=== PATIENT | female | born 1990 | race Caucasian/White ===

== ENCOUNTER 2016-12-09 14:10 | Emergency (ER) | payer OTHER ==
[2016-12-09 16:39] VITALS: PULSE 69; RESP 18
--- NOTE | 2016-12-09 16:51 | ED ---
General Adult HPI - General Chief complaint: Abdominal Pain Stated complaint: lower back pain/flank pain Source: patient, family, RN notes reviewed Mode of arrival: ambulatory Limitations: no limitations - History of Present Illness Initial comments: Chief complaint history of present illness a 26-year-old female here with her mother. The patient reports she's had on-again off-again discomfort to her lumbar spine area and occasionally radiates into the buttocks and sometimes down both legs. Discomfort increases with bending forward. Occasionally she has some sweats. No nausea no vomiting. She can't remember any particular effort or injury that may have happened over the past 6 weeks. - Related Data Home Medications Medication Instructions Recorded Confirmed Levonorgestrel-Ethin Estradiol 1 tab PO HS 12/09/16 12/09/16 [Lutera-28 Tablet] Previous Rx's Medication Instructions Recorded Diazepam [Valium] 5 mg PO BID #4 tab 12/09/16 Ibuprofen [Motrin] 600 mg PO Q6HR PRN #16 tab 12/09/16 predniSONE 20 mg PO DAILY #3 tab 12/09/16 Allergies Allergy/AdvReac Type Severity Reaction Status Date / Time No Known Allergies Allergy Verified 12/09/16 14:16 Review of Systems ROS Statement: Those systems with pertinent positive or pertinent negative responses have been documented in the HPI. Review of systems no visual acuity changes no headache no stiff neck no chest pain or shortness of breath. Patient complains of low back pain and mild discomfort to the lower abdomen both left and right side. No low back pain constant. The other discomforts coming go. No significant change in frequency urgency or dysuria. Though the patient has had urinary tract infections without symptoms. Patient denies any neuro deficits. No foot drop. All systems are reviewed. Past medical problems urinary tract infections. Surgeries appendectomy. Family history cancers include breast and thyroid. Patient denies any ALLERGIES nonsmoker nondrinker. ROS Other: All systems not noted in ROS Statement are negative. Past Medical History Past Medical History: No Reported History Additional Past Medical History / Comment(s): Obstetric history: This is her first . She has had care with me since 8 week gestation. A neg , abs neg, Rub nonimmune, RPR NR, Hep B neg, HIV NR, toxo neg. She recieved rhogam on 10-21-13. Had a normal anatomy US. normal 1hr GTT History of Any Multi-Drug Resistant Organisms: MRSA Date of last positivie culture/infection: 07/24/2011 MDRO Source:: BUTTOCKS Past Surgical History: Appendectomy Past Anesthesia/Blood Transfusion Reactions: No Reported Reaction Past Psychological History: No Psychological Hx Reported Smoking Status: Never smoker Past Alcohol Use History: None Reported Past Drug Use History: None Reported General Exam - General Exam Comments Initial Comments: General: The patient is awake and alert, in no distress, and does not appear acutely ill. Complaining of lumbar discomfort. Vital signs temperature 98.6 pulse 71 respiratory rate 20 pulse ox 99% room air blood pressure 134/92 Eye: Pupils are equal, round and reactive to light, extra-ocular movements are intact ; there is normal conjunctiva bilaterally. No signs of icterus. Ears, nose, mouth and throat: There are moist mucous membranes and no oral lesions. Neck: The neck is supple, there is no tenderness, no anterior cervical lymphadenopathy , thyroid not enlarged. Cardiovascular: There is a regular rate and rhythm. No murmur, rub or gallop is appreciated. Respiratory: Lungs are clear to auscultation, respirations are non-labored, breath sounds are equal. No wheezes, stridor, rales, or rhonchi. Gastrointestinal: Soft, non-distended, non-tender abdomen without masses or organomegaly noted. There is no rebound or guarding present. No CVA tenderness. Bowel sounds are unremarkable. Back: Pointed discomfort to the left and right paralumbar region. No pain with deep palpation of the lumbar spine. Discomfort slightly increases with bending down to moss picker her child or bending fully over. Occasional discomfort into the legs. No foot drop. No neuro deficits. Musculoskeletal: Normal ROM, no tenderness, There is no pedal edema. There is no calf tenderness or swelling. Sensation intact. Pulses equal bilaterally 2+. Neurological: CN II-XII intact, There are no obvious motor or sensory deficits. Coordination appears grossly intact. Speech is normal. Skin: Skin is warm and dry and no rashes or lesions are noted. Limitations: no limitations Course Vital Signs 12/09/16 12/09/16 14:14 16:30 Temperature 98.6 F Pulse Rate 71 69 Respiratory 20 18 Rate Blood Pressure 134/92 116/74 O2 Sat by Pulse 99 98 Oximetry Medical Decision Making - Medical Decision Making [place] decision-making. The patient's urine is clean no signs of infection. Urine test was negative as well. X-ray of the lumbar spine was done and reviewed by radiologist. Final impression is slight narrowing of L4-L5 disc. Otherwise negative exam. As read by Dr. Correa The plan at this size for the patient be placed on a muscle relaxant of Valium 5 mg twice a day for 2 days. Also advised to use ibuprofen 600 mg with food every 6 hours. Advised to follow-up with her family physician for a MRI may be necessary if symptoms persist. - Lab Data Lab Results 12/09/16 12/09/16 Range/Units 16:57 16:57 Urine Color Yellow Urine Appearance Clear (Clear) Urine pH 5.0 (5.0-8.0) Ur Specific [place] 1.007 (1.001-1.035) Urine Protein Negative (Negative) Urine Glucose (UA) Negative (Negative) Urine Ketones Negative (Negative) Urine Blood Negative (Negative) Urine Nitrite Negative (Negative) Urine Bilirubin Negative (Negative) Urine Urobilinogen <2.0 (<2.0) mg/dL Ur Leukocyte Esterase Negative (Negative) Urine HCG, Qual Not Detected (Not Detectd) Disposition Clinical Impression: Lumbar disc narrowing Disposition: HOME SELF-CARE Condition: Fair Instructions: Lower Back Exercises (ED), Degenerative Disc Disease (ED), Lumbar Radiculopathy (ED) Additional Instructions: Ice alternating with heat and gentle stretching. Use medications as directed. Follow up with your family physician as an MRI may be necessary for further evaluation medications aren't effective. Prescriptions: Diazepam [Valium] 5 mg PO BID #4 tab Ibuprofen [Motrin] 600 mg PO Q6HR PRN #16 tab PRN Reason: Pain predniSONE 20 mg PO DAILY #3 tab Referrals: Wei Sorto MD [Primary Care Provider] - 1-2 days Time of Disposition: 17:50
[2016-12-09 17:05] LABS: Appearance,Urine Clear (Clear); Bilirubin,Urine Negative (Negative); Glucose,Urine (UA) Negative (Negative); Ketones,Urine Negative (Negative); Leukocyte Esterase,Urine Negative (Negative); Nitrite,Urine Negative (Negative); Protein,Urine Negative (Negative); Specific Gravity,Urine 1.007 (1.001-1.035); UA Billing (MACRO vs. MICRO) CHEM; Urobilinogen,Urine <2.0 mg/dL (<2.0)
--- NOTE | 2016-12-09 17:31 | XR ---
EXAMINATION TYPE: XR lumbosacral spine min 4V DATE OF EXAM: 12/09/2016 COMPARISON: NONE HISTORY: Back pain TECHNIQUE: 5 views FINDINGS: 5 views of the lumbar spine were obtained and show normal alignment of the vertebra. There is slight narrowing at L4-5 disc space. The other disc spaces are normal. There is no compression fra cture. Sacroiliac joints are normal. Posterior elements are intact. IMPRESSION: Slight narrowing of L4-5 disc. Otherwise negative exam.
[2016-12-09 18:03] VITALS: BP 104/58; TEMP 97.9
== END 2016-12-09 18:03 | disposition home or self-care (01) ==
LOC: EC 14:10
DX: M48.06 Spinal stenosis, lumbar region (principal); Z79.3 Long term (current) use of hormonal contraceptives
CPT/HCPCS: 72110; 81003; 81025; 87077; 87086; 87186; 99284

== ENCOUNTER → 2017-06-12 | Outpatient (CLI) | payer OTHER ==
--- NOTE | 2017-06-12 16:12 | US ---
EXAMINATION TYPE: US OB <= 14 wk fetus DATE OF EXAM: 06/12/2017 COMPARISON: NONE CLINICAL HISTORY: Z36 Confirm dates. Early OB with unknown dates EXAM PERFORMED: OBTA EXAM MEASUREMENTS: GESTATIONAL AGE / DATING Physician Established: (11 weeks/3 days) EDC: 12/29/2017 Dates by LMP: unknown Dates by First Scan: [employer]ING Dates by Current Scan for: (11 weeks/3 days) EDC: 12/29/2017 MATERNAL ANATOMY Uterus: 11.3 x 8.1 x 7.2 Right Ovary: 3.3 x 2.3 x 2.4cm Left Ovary: not seen due to bowel gas and enlarging UT Post CDS / Adnexa: wnl Presence of free fluid: no Presence of corpus luteal cyst: yes, right = 2.0cm Presence of subchorionic bleed: no GESTATION / SURVEY CRL: 4.6cm (11 weeks/3 days) MSD: wnl Yolk Sac (normal less than 6mm): not seen Heart Rate: 178 bpm Rhythm: Normal IUP: Viable IUP Date of LMP: unknown Beta HcG (if available): not available Single live intrauterine gestation is seen as gestational sac and pole are identified. Yolk sac is not clearly seen. No free fluid is seen in pelvic cul-de-sac. Right ovary is seen. Left ovary is not clearly identified. Within right ovary there is oval 2.0 cm le thaddeus felt to reflect corpus luteal cyst. No suspicious adnexal mass is present. IMPRESSION: Single live intrauterine gestation is confirmed, mean crown-rump length is 4.6 cm corresponding to a 11 week 3 day old fetus.
== END | disposition home or self-care (01) ==
LOC: RADUSWWP 15:41
PROVIDERS: ATTEND Obstetrics & Gynecology
DX: Z36.9 Encounter for antenatal screening, unspecified (principal); Z3A.11 11 weeks gestation of pregnancy
CPT/HCPCS: 76801

== ENCOUNTER 2017-12-05 12:54 | Outpatient (CLI) | payer OTHER ==
[2017-12-05 14:13] VITALS: BP 102/62; PULSE 84; RESP 15; TEMP 97.8
--- NOTE | 2018-01-02 07:40 | P.MSEPDOC ---
Presenting Problems - Arrival Data Date of Arrival on Unit: 12/05/17 Time of Arrival on Unit: 12:59 Mode of Transport: Ambulatory Medical History - Information : 2 Para: 1 Term: 1 : 0 Abortions: Spontaneous or Elective: 0 Number of Living Children: 1 - Gestational Age Gestational Age by CÉSAR (wks/days): 36 Weeks and 4 Days Vital Signs - Temperature Temperature: 97.8 F Temperature Source: Oral - Pulse Right Brachial Pulse Rate: 84 Pulse Assessment Method: Automatic Cuff - Respirations Respiratory Rate: 15 Oxygen Delivery Method: Room Air O2 Sat by Pulse Oximetry: 99 - Blood Pressure Right Arm Sitting Blood Pressure: 102/62 Blood Pressure Mean: 75 Blood Pressure Source: Automatic Cuff Medical Screen Scoring (Post) - Cervical Exam Dilation: 1-3 cm = 1 Effacement: More than 50% = 2 Membranes: Intact - Uterine Contractions Frequency: > 5 minutes apart = 1 Duration: N/A Intensity: N/A - Maternal Vital Signs Maternal Temperature: N/A Maternal Blood Pressure: N/A Signs of Preeclampsia: N/A Maternal Respirations: N/A - Pain Assessment Pain Location and Character: Abdomen Pain Scale Used: Numeric (1 - 10) Pain Intensity: 4 Pain Description: *Acute Pain Frequency: Intermittent Pain Duration Units: Hours Pain Behavior: Vocalization Pain Aggravating Factors: Contractions Non-Pharmacological Interventions: Relaxation Technique - Maternal Trauma Maternal Trauma: N/A - Assessment Heart Rate: 135 Heart Rate - NICHD Category: Category I (Normal) = 0 NST: Reactive Position: N/A Station: N/A - Total Score Total Score (Post): 4 - Post Treatment Level of Risk Post Treatment Level of Risk: Low (0-5) Physician Notification (Post) - Physician Notified Physician Notified Date: 12/05/17 Physician Notified Time: 14:00 Spoke With: Dr Alves New Order Received: Yes - Notification Comment Comment: pt here for contx. pt made no cervical change. dc home and f/u in office tomorrow per t.oDebbi Alves Disposition - Disposition OB Disposition: Triage, Discharge to home, Written follow up instructions reviewed Discharge Date: 12/05/17 Discharge Time: 14:10 I agree with the RN Medical Screening Exam: Yes Risk & Benefit of care provided described in d/c instruction: Yes Diagnosis: FALSE LABOR BEFORE 37 COMPLETED WEEKS OF GEST, THIRD TRI
== END 2017-12-05 14:10 | disposition home or self-care (01) ==
LOC: FBPOP 12:54
PROVIDERS: ATTEND Obstetrics & Gynecology
DX: O47.03 False labor before 37 completed weeks of gestation, third trimester (principal); Z3A.36 36 weeks gestation of pregnancy
CPT/HCPCS: 59025; G0463; 99213

== ENCOUNTER 2018-01-03 01:10 | Inpatient (IN) | payer OTHER ==
[2018-01-03] MEDS ORDERED: TERBUTALINE 1 MG/ML VIAL SQ PRN (01:29)
[2018-01-03] MEDS ORDERED: OXYTOCIN 10 UNIT/ML 1 ML VIAL IM PRN (01:29)
[2018-01-03] MEDS ORDERED: LIDOCAINE 1% (PF) 10 MG/ML (30 ML SDV) SQ PRN (01:29)
[2018-01-03] MEDS ORDERED: METHYLERGONOVINE 0.2 MG/ML 1 ML AMP IM PRN (01:29)
[2018-01-03] MEDS ORDERED: CARBOPROST TROMETHAMINE 250 MCG/ML 1 ML AMP IM PRN (01:29)
[2018-01-03] MEDS ORDERED: OXYTOCIN 20 UNITS/1000 ML NS 1,000 ML IV SCH (01:30)
[2018-01-03 01:48] VITALS: BMI 28.9
[2018-01-03 01:59] LABS: Basophils % (A) 0 %; Eosinophils # (A) 0.1 k/uL (0-0.7); Eosinophils % (A) 1 %; HCT 42.1 % (34.0-46.0); HGB 14.3 gm/dL (11.4-16.0); Lymphocytes % (A) 11 %; MCH 32.6 pg (25.0-35.0); MCV 95.9 fL (80.0-100.0); Monocytes # (A) 0.9 k/uL (0-1.0); Monocytes % (A) 5 %; Neutrophils # (A) 15.7 k/uL (1.3-7.7); Neutrophils % (A) 83 %; Platelet Count 142 k/uL (150-450); RBC 4.39 m/uL (3.80-5.40); RDW 13.6 % (11.5-15.5)
[2018-01-03] MEDS: LACTATED RINGERS 1,000 ML IV SCH ×3 (02:12→17:23)
[2018-01-03] MEDS ORDERED: diphenhydrAMINE 50 MG/ML 1 ML VIAL IVP PRN ×2 (02:30)
[2018-01-03] MEDS ORDERED: SIMETHICONE 80 MG CHEWABLE PO PRN (02:30)
[2018-01-03] MEDS ORDERED: HYDROcodone/APAP 5-325MG 1 EACH TAB PO PRN (02:30)
[2018-01-03] MEDS ORDERED: WITCH HAZEL 1 EACH MED..PAD TOPICAL PRN (02:30)
[2018-01-03] MEDS ORDERED: diphenhydrAMINE 25 MG CAP PO PRN (02:30)
[2018-01-03] MEDS ORDERED: IBUPROFEN 600 MG TAB PO PRN (02:30)
[2018-01-03] MEDS ORDERED: HYDROCORTISONE 2.5% RECTAL CREAM 30 GM TUBE RECTAL PRN (02:30)
[2018-01-03] MEDS ORDERED: LANOLIN CREAM 5 GM TUBE TOPICAL PRN (02:30)
[2018-01-03] MEDS ORDERED: diphenhydrAMINE 50 MG CAP PO PRN (02:30)
[2018-01-03] MEDS ORDERED: BENZOCAINE/MENTHOL SPRAY 1 GM/SPRAY AEROSOL TOPICAL PRN (02:30)
[2018-01-03] MEDS ORDERED: ACETAMINOPHEN TAB 325 MG TAB PO PRN (02:30)
[2018-01-03] MEDS ORDERED: ZOLPIDEM 5 MG TAB PO PRN (02:30)
--- NOTE | 2018-01-03 02:33 | P.HPOB ---
History of Present Illness H&P Date: 01/03/18 Chief Complaint: Intrauterine at term: Active labor Patient is a 27-year-old at 40 weeks 5 days gestation arrives in active labor krishna every 2-3 minutes. At presentation she was dilated to 9 cm with intact membranes. She denies any problems with the and she is feeling well at this time. She relates no other medical problems either. Artificial rupture membranes was performed with patient complete clear fluid is noted. Pertinent labs could O- blood type, Rh antibody was negative, she did receive [place] gamma approximately 28 weeks. Rubella was immune, hepatitis B surface antigen/RPR/GBS were all negative. heart tones in the 130s to 140s and are reactive Past Medical History Past Medical History: No Reported History Additional Past Medical History / Comment(s): Obstetric history: This is her first . She has had care with me since 8 week gestation. A neg , abs neg, Rub nonimmune, RPR NR, Hep B neg, HIV NR, toxo neg. She recieved rhogam on 10-21-13. Had a normal anatomy US. normal 1hr GTT History of Any Multi-Drug Resistant Organisms: MRSA Date of last positivie culture/infection: 07/24/2011 MDRO Source:: BUTTOCKS Past Surgical History: Appendectomy Past Anesthesia/Blood Transfusion Reactions: No Reported Reaction Past Psychological History: No Psychological Hx Reported Smoking Status: Never smoker Past Alcohol Use History: None Reported Past Drug Use History: None Reported - Past Family History Mother Family Medical History: Hypertension Medications and Allergies Home Medications Medication Instructions Recorded Confirmed Type Pnv No.95/Ferrous Fum/Folic AC 1 12/05/17 History [ Multivitamin Tablet] Allergies Allergy/AdvReac Type Severity Reaction Status Date / Time No Known Allergies Allergy Verified 01/03/18 01:29 Exam Osteopathic Statement: *. No significant issues noted on an osteopathic structural exam other than those noted in the History and Physical/Consult. Vital Signs Temp Pulse Resp BP 01/03/18 01:10 96.5 F L 95 16 115/70 Intake and Output 01/02/18 01/02/18 01/03/18 14:59 22:59 06:59 Other: Weight 78.925 kg - OBG Physical Exam Breast: both: normal (no masses) Abdomen: bowel sounds normal, no diffuse tenderness, no bruit present, no guarding noted, no hepatomegaly, no splenomegaly, no mass Vulva: both: normal Vagina: normal moisture, no discharge Cervix: no lesion, no discharge Uterus: normal size, normal contour Adnexa: both: normal Anus/Rectum: normal perianal skin, no rectal mass, no hemorrhoids, heme negative Results Result Diagrams: 01/03/18 01:45 Abnormal Lab Results - Last 24 Hours (Table) 01/03/18 Range/Units 01:45 WBC 19.0 H (3.8-10.6) k/uL Plt Count 142 L (150-450) k/uL Neutrophils # 15.7 H (1.3-7.7) k/uL
--- NOTE | 2018-01-03 02:35 | P.PROBDLV ---
Vaginal Delivery Note - . Vaginal Delivery Note: Patient precipitously came to complete and pushing with spontaneous vaginal delivery of a viable female over a second-degree midline laceration. Following delivery of the head a nuchal cord 2 was noted but patient pushed through and without difficulty baby was fully delivered. Nuchal cord was then reduced and mouth nares were bulb suctioned. Patient was unable to herself from pushing any further, but with the looseness of the cord there is no issues with delivery and the baby. Once baby was delivered nursery personnel was present to assume care. Ascent was then delivered intact, it had what appears to be a velamentous insertion and while it came out in total it was having some friability to it and will be sent to pathology. Once placenta was delivered Pitocin was added to the IV scores are pending but weight was 7 lbs. 12 oz. A second degree midline laceration was noted and repaired in usual fashion with 3-0 Vicryl following 1% Xylocaine for analgesia. Both mother and baby are currently stable following delivery.
[2018-01-03] MEDS: SENNOSIDES-DOCUSATE SODIUM 1 EACH TAB PO SCH ×2 (07:55→22:06)
[2018-01-04] MEDS: LACTATED RINGERS 1,000 ML IV SCH (01:29)
--- NOTE | 2018-01-04 08:00 | P.DS ---
Providers Date of admission: 01/03/18 01:25 Expected date of discharge: 01/04/18 Attending physician: Loli Alves Primary care physician: Stated None - Discharge Diagnosis(es) (1) Normal vaginal delivery Current Visit: Yes Status: Acute Hospital Course: Patient presented in active labor. She underwent normal vaginal delivery. Her post course was uncomplicated. She'll be discharged home day #1 in stable condition to follow-up with me in 6 weeks. Plan - Discharge Summary Discharge Rx Participant: Yes New Discharge Prescriptions: New Ibuprofen [Motrin] 600 mg PO Q6HR PRN #30 tab PRN Reason: Mild Pain Or Fever >= 100.5 No Action Pnv No.95/Ferrous Fum/Folic AC [ Multivitamin Tablet] 1 Discharge Medication List Pnv No.95/Ferrous Fum/Folic AC [ Multivitamin Tablet] 1 12/05/17 [ History] Ibuprofen [Motrin] 600 mg PO Q6HR PRN #30 tab 01/04/18 [Rx] Follow up Appointment(s)/Referral(s): Loli Alves DO [Doctor of Osteopathic Medicine] - 6 Weeks Discharge Disposition: HOME SELF-CARE
[2018-01-04 08:39] VITALS: BP 104/70; PULSE 86; RESP 16; TEMP 97.4
[2018-01-04] MEDS: SENNOSIDES-DOCUSATE SODIUM 1 EACH TAB PO SCH (08:58)
[2018-01-04 09:30] LABS: Basophils % (A) 0 %; Eosinophils # (A) 0.1 k/uL (0-0.7); Eosinophils % (A) 1 %; HCT 38.9 % (34.0-46.0); Lymphocytes # (A) 2.1 k/uL (1.0-4.8); Lymphocytes % (A) 23 %; MCH 32.5 pg (25.0-35.0); MCHC 33.5 g/dL (31.0-37.0); MCV 97.1 fL (80.0-100.0); Mean Platelet Volume 8.1; Monocytes # (A) 0.3 k/uL (0-1.0); Monocytes % (A) 3 %; Neutrophils # (A) 6.4 k/uL (1.3-7.7); Neutrophils % (A) 71 %; Platelet Count 172 k/uL (150-450); RBC 4.01 m/uL (3.80-5.40)
== END 2018-01-04 16:00 | disposition home or self-care (01) | DRG 775 ==
LOC: FBPOP 01:10 → 4FBP 01:25
PROVIDERS: ADMIT Obstetrics & Gynecology; ATTEND Obstetrics & Gynecology
PROC: 10E0XZZ Delivery of Products of Conception, External Approach (ICD-10-PCS; principal; 2018-01-03)
PROC: 0KQM0ZZ Repair Perineum Muscle, Open Approach (ICD-10-PCS; 2018-01-03)
DX: O69.81X0 Labor and delivery complicated by cord around neck, without compression, not applicable or unspecified (principal); Z37.0 Single live birth; O26.893 Other specified pregnancy related conditions, third trimester; O70.1 Second degree perineal laceration during delivery; Z67.91 Unspecified blood type, Rh negative; Z3A.40 40 weeks gestation of pregnancy; Z86.14 Personal history of Methicillin resistant Staphylococcus aureus infection; Z90.49 Acquired absence of other specified parts of digestive tract; Z82.49 Family history of ischemic heart disease and other diseases of the circulatory system
CPT/HCPCS: 59025; 85025; 88307; 99213

== ENCOUNTER 2018-03-25 02:34 | Emergency (ER) | payer OTHER ==
--- NOTE | 2018-03-25 05:45 | ED ---
Fall HPI - General Chief Complaint: Fall Stated Complaint: Fall/Chin injury Time Seen by Provider: 03/25/18 05:24 Source: patient Mode of arrival: ambulatory - History of Present Illness Initial Comments: This patient is a 28-year-old woman who presents to be a value for chin laceration sustained in a fall area secured less than hour prior to arrival. I patient denies other injuries. There was no loss consciousness. She states she tripped while she was walking. She is denying head or neck pain. No other injuries. 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 Witnessed: yes, by family Place Fall Occurred: street Loss of Consciousness: none Prolonged Down Time?: no Symptoms Prior to Fall: none Location: face - Related Data Home Medications Medication Instructions Recorded Confirmed Pnv No.95/Ferrous Fum/Folic AC 1 12/05/17 [ Multivitamin Tablet] Previous Rx's Medication Instructions Recorded Ibuprofen [Motrin] 600 mg PO Q6HR PRN #30 tab 01/04/18 Allergies Allergy/AdvReac Type Severity Reaction Status Date / Time No Known Allergies Allergy Verified 03/25/18 02:40 Review of Systems ROS Statement: Those systems with pertinent positive or pertinent negative responses have been documented in the HPI. ROS Other: All systems not noted in ROS Statement are negative. Respiratory: Denies: cough, dyspnea Cardiovascular: Denies: chest pain, syncope Skin: Reports: as per HPI, other (Laceration) Hematological/Lymphatic: Denies: easy bleeding Past Medical History Past Medical History: No Reported History Additional Past Medical History / Comment(s): Obstetric history: This is her first . She has had care with mi since 8 week gestation. A neg , abs neg, Rub nonimmune, RPR NR, Hep B neg, HIV NR, toxo neg. She recieved rhogam on 10-21-13. Had a normal anatomy US. normal 1hr GTT History of Any Multi-Drug Resistant Organisms: MRSA Date of last positivie culture/infection: 07/24/2011 MDRO Source:: BUTTOCKS Past Surgical History: Appendectomy Past Anesthesia/Blood Transfusion Reactions: No Reported Reaction Past Psychological History: No Psychological Hx Reported Smoking Status: Never smoker Past Alcohol Use History: Rare Past Drug Use History: None Reported - Past Family History Mother Family Medical History: Hypertension General Exam General appearance: alert, in no apparent distress Head exam: Present: atraumatic, normocephalic Eye exam: Present: normal appearance, PERRL, EOMI. Absent: scleral icterus, conjunctival injection, nystagmus ENT exam: Present: normal oropharynx, mucous membranes moist Neck exam: Present: full ROM. Absent: tenderness Skin exam: Present: warm, dry, other (Skin laceration, stellate, approximately 2 cm in length.) Course Vital Signs 03/25/18 02:35 Temperature 98.1 F Pulse Rate 101 H Respiratory 18 Rate Blood Pressure 107/69 O2 Sat by Pulse 99 Oximetry Procedures - Laceration Laceration #1 Consent Obtained: verbal consent Indication: laceration Site: face Description: stellate Depth: simple, single layer Anesthetic Used: lidocaine 1% Anesthesia Technique: local infiltration Type of Sutures: nylon Size of Sutures: 6-0 Number of Sutures: 3 Technique: simple, interrupted Patient Tolerated Procedure: well, no complications Disposition Clinical Impression: Chin laceration, Fall Disposition: HOME SELF-CARE Condition: Good Instructions: Laceration (DC) Is patient prescribed a controlled substance at d/c from ED?: No Referrals: Wei Sorto MD [Primary Care Provider] - 1-2 days
[2018-03-25 05:58] VITALS: BP 113/70; PULSE 78; RESP 16; TEMP 97.7
== END 2018-03-25 05:58 | disposition home or self-care (01) ==
LOC: EC 02:34
DX: S01.81XA Laceration without foreign body of other part of head, initial encounter (principal); Z86.14 Personal history of Methicillin resistant Staphylococcus aureus infection; W01.0XXA Fall on same level from slipping, tripping and stumbling without subsequent striking against object, initial encounter; Y93.01 Activity, walking, marching and hiking; Y92.410 Unspecified street and highway as the place of occurrence of the external cause
CPT/HCPCS: 12011; 99283

== ENCOUNTER 2018-05-18 17:43 | Emergency (ER) | payer OTHER ==
[2018-05-18 17:57] VITALS: TEMP 98.4
[2018-05-18] MEDS ORDERED: CYCLOBENZAPRINE 5 MG TAB PO STA (18:11)
[2018-05-18] MEDS ORDERED: HYDROcodone/APAP 5-325MG 1 EACH TAB PO STA (18:12)
--- NOTE | 2018-05-18 18:24 | ED ---
Back Pain HPI - General Chief Complaint: Back Pain/Injury Stated Complaint: back pain Time Seen by Provider: 05/18/18 18:00 Source: patient, RN notes reviewed Limitations: no limitations - History of Present Illness Initial Comments: 28-year-old female presents emergency Department chief complaint of low back pain. Patient states that pain started Monday when she was stepping outside of her door while carrying the car seat. She states that she continuously locked up and felt pain. Patient states she's been doing conservative treatment at home with topicals, ibuprofen, heat and ice. Patient states that she gets some relief but states pain is unbearable at this time. Denies any bowel, bladder incontinence or retention. Patient denies any lower extremity paresthesias or saddle anesthesias. She does admit that she has some pain and rates her left leg. Patient denies any abdominal pain including nausea, vomiting, diarrhea constipation no fever or chills. Patient states that she's had some back trouble in the past but never to this extent. - Related Data Home Medications Medication Instructions Recorded Confirmed Ibuprofen [Motrin] 800 mg PO Q6H 05/18/18 05/18/18 Previous Rx's Medication Instructions Recorded Ciprofloxacin HCl [Cipro] 500 mg PO Q12HR #20 tablet 05/18/18 Cyclobenzaprine [Flexeril] 10 mg PO TID PRN #15 tab 05/18/18 Allergies Allergy/AdvReac Type Severity Reaction Status Date / Time No Known Allergies Allergy Verified 05/18/18 18:13 Review of Systems ROS Statement: Those systems with pertinent positive or pertinent negative responses have been documented in the HPI. ROS Other: All systems not noted in ROS Statement are negative. Past Medical History Past Medical History: No Reported History Additional Past Medical History / Comment(s): Obstetric history: This is her first . She has had care with [facility] since 8 week gestation. A neg , abs neg, Rub nonimmune, RPR NR, Hep B neg, HIV NR, toxo neg. She recieved rhogam on 10-21-13. Had a normal anatomy US. normal 1hr GTT History of Any Multi-Drug Resistant Organisms: MRSA Date of last positivie culture/infection: 07/24/2011 MDRO Source:: BUTTOCKS Past Surgical History: Appendectomy Past Anesthesia/Blood Transfusion Reactions: No Reported Reaction Past Psychological History: No Psychological Hx Reported Smoking Status: Never smoker Past Alcohol Use History: Rare Past Drug Use History: None Reported - Past Family History Mother Family Medical History: Hypertension General Exam Limitations: no limitations General appearance: alert, in no apparent distress Head exam: Present: atraumatic, normocephalic, normal inspection Cardiovascular Exam: Present: normal rhythm, tachycardia, normal heart sounds. Absent: systolic murmur, diastolic murmur, rubs, gallop, clicks GI/Abdominal exam: Present: soft, normal bowel sounds. Absent: distended, tenderness, guarding, rebound, rigid Extremities exam: Present: normal inspection, full ROM, normal capillary refill , other (Lower extremity strength equal bilaterally, neurovascular intact). Absent: tenderness, pedal edema, joint swelling, calf tenderness Back exam: Present: full ROM (Moderate discomfort), tenderness, CVA tenderness ( L), paraspinal tenderness (Lumbar). Absent: vertebral tenderness Neurological exam: Present: alert, oriented X3, CN II-XII intact, reflexes normal. Absent: motor sensory deficit Skin exam: Present: warm, dry, intact, normal color. Absent: rash Course Vital Signs 05/18/18 17:54 Temperature 98.4 F Pulse Rate 125 H Respiratory 16 Rate Blood Pressure 84/61 O2 Sat by Pulse 100 Oximetry Medical Decision Making - Medical Decision Making 28-year-old female presented for low back pain, flank pain. Patient has muscle skeletal lumbar strain. Patient does feel improved after medications emergency department. Patient does have evidence of urinary tract infection. She is afebrile. Patient will be treated with antibiotics for early pyelonephritis. Return parameters were discussed. Patient is comfortable with discharge. - Lab Data Lab Results 05/18/18 05/18/18 Range/Units 19:00 19:00 Urine Color Yellow Urine Appearance Cloudy H (Clear) Urine pH 5.5 (5.0-8.0) Ur Specific Adams 1.013 (1.001-1.035) Urine Protein 1+ H (Negative) Urine Glucose (UA) Negative (Negative) Urine Ketones Negative (Negative) Urine Blood Moderate H (Negative) Urine Nitrite Negative (Negative) Urine Bilirubin Negative (Negative) Urine Urobilinogen <2.0 (<2.0) mg/dL Ur Leukocyte Esterase Large H (Negative) Urine RBC 3 (0-5) /hpf Urine WBC 51 H (0-5) /hpf Ur Squamous Epith Cells 2 (0-4) /hpf Urine Bacteria Rare H (None) /hpf Cellular Casts 15 (0) /lpf Hyaline Casts 3 H (0-2) /lpf Granular Casts 8 (0) /lpf Urine Mucus Occasional H (None) /hpf Urine HCG, Qual Not Detected (Not Detectd) Disposition Clinical Impression: Strain of lumbar region, UTI (urinary tract infection) Disposition: HOME SELF-CARE Condition: Stable Instructions (If sedation given, give patient instructions): Acute Low Back Pain (ED) Additional Instructions: Please return to the Emergency Department if symptoms worsen or any other concerns. Prescriptions: Ciprofloxacin HCl [Cipro] 500 mg PO Q12HR #20 tablet Cyclobenzaprine [Flexeril] 10 mg PO TID PRN #15 tab PRN Reason: Muscle Spasm Is patient prescribed a controlled substance at d/c from ED?: No Referrals: Wei Sorto MD [Primary Care Provider] - 1-2 days Time of Disposition: 19:44
[2018-05-18 19:39] LABS: Appearance,Urine Cloudy (Clear); Bacteria,Urine Rare /hpf; Bilirubin,Urine Negative (Negative); Blood,Urine Moderate (Negative); Cellular Casts,Urine 15 /lpf (0); Color,Urine Yellow; Glucose,Urine (UA) Negative (Negative); Granular Casts,Urine 8 /lpf (0); Hyaline Casts,Urine 3 /lpf (0-2); Ketones,Urine Negative (Negative); Leukocyte Esterase,Urine Large (Negative); Mucus,Urine Occasional /hpf; Nitrite,Urine Negative (Negative); PH, Urine 5.5 (5.0-8.0); Protein,Urine 1+ (Negative); RBC,Urine 3 /hpf (0-5); Specific Gravity,Urine 1.013 (1.001-1.035); Squamous Epithelial Cell,Urine 2 /hpf (0-4); Urobilinogen,Urine <2.0 mg/dL (<2.0); WBC,Urine 51 /hpf (0-5)
[2018-05-18] MEDS ORDERED: ACET/COD 300 MG/30 MG STARTER PACK 6 TAB BTL PO STA (19:43)
[2018-05-18 20:01] VITALS: BP 98/61; PULSE 102; RESP 18
== END 2018-05-18 20:00 | disposition home or self-care (01) ==
LOC: EC 17:43
DX: S39.012A Strain of muscle, fascia and tendon of lower back, initial encounter (principal); N39.0 Urinary tract infection, site not specified; N12 Tubulo-interstitial nephritis, not specified as acute or chronic; R00.0 Tachycardia, unspecified; Z86.14 Personal history of Methicillin resistant Staphylococcus aureus infection; Z90.49 Acquired absence of other specified parts of digestive tract
CPT/HCPCS: 81001; 81025; 99283

== ENCOUNTER 2019-08-29 15:46 | Inpatient (IN) | payer OTHER ==
[2019-08-29] MEDS ORDERED: CARBOPROST TROMETHAMINE 250 MCG/ML 1 ML AMP IM PRN (16:07)
[2019-08-29] MEDS ORDERED: OXYTOCIN 10 UNIT/ML 1 ML VIAL IM PRN (16:07)
[2019-08-29] MEDS ORDERED: LIDOCAINE 0.5% (PF) 5 MG/ML (50 ML SDV) SQ PRN (16:07)
[2019-08-29] MEDS ORDERED: METHYLERGONOVINE 0.2 MG/ML 1 ML AMP IM PRN (16:07)
[2019-08-29] MEDS ORDERED: TERBUTALINE 1 MG/ML VIAL SQ PRN (16:07)
[2019-08-29] MEDS: LACTATED RINGERS 1,000 ML IV SCH (16:24)
[2019-08-29 16:44] LABS: Basophils % (A) 0 %; Eosinophils % (A) 0 %; HCT 41.6 % (34.0-46.0); HGB 14.4 gm/dL (11.4-16.0); Lymphocytes # (A) 1.8 k/uL (1.0-4.8); Lymphocytes % (A) 11 %; MCH 32.9 pg (25.0-35.0); MCHC 34.6 g/dL (31.0-37.0); MCV 95.2 fL (80.0-100.0); Monocytes # (A) 0.4 k/uL (0-1.0); Monocytes % (A) 3 %; Neutrophils # (A) 14.7 k/uL (1.3-7.7); Neutrophils % (A) 86 %; Platelet Count 160 k/uL (150-450); RBC 4.37 m/uL (3.80-5.40); RDW 13.4 % (11.5-15.5); WBC 17.1 k/uL (3.8-10.6)
[2019-08-29] MEDS ORDERED: diphenhydrAMINE 50 MG/ML 1 ML VIAL IVP PRN ×2 (17:05)
[2019-08-29] MEDS ORDERED: diphenhydrAMINE 25 MG CAP PO PRN (17:05)
[2019-08-29] MEDS ORDERED: HYDROCORTISONE 2.5% RECTAL CREAM 30 GM TUBE RECTAL PRN (17:05)
[2019-08-29] MEDS ORDERED: diphenhydrAMINE 50 MG CAP PO PRN (17:05)
[2019-08-29] MEDS ORDERED: MEASLES-MUMPS-RUBELLA VACC/PF 12,500 UNIT/0.5 ML VIAL SQ ONE (17:05)
[2019-08-29] MEDS ORDERED: IBUPROFEN 600 MG TAB PO PRN (17:05)
[2019-08-29] MEDS ORDERED: BENZOCAINE/MENTHOL SPRAY 1 GM/SPRAY AEROSOL TOPICAL PRN (17:05)
[2019-08-29] MEDS ORDERED: LANOLIN CREAM 5 GM TUBE TOPICAL PRN (17:05)
[2019-08-29] MEDS ORDERED: WITCH HAZEL 1 EACH MED..PAD TOPICAL PRN (17:05)
[2019-08-29] MEDS ORDERED: SIMETHICONE 80 MG CHEWABLE PO PRN (17:05)
[2019-08-29] MEDS ORDERED: ACETAMINOPHEN TAB 325 MG TAB PO PRN (17:05)
[2019-08-29] MEDS ORDERED: ZOLPIDEM 5 MG TAB PO PRN (17:05)
[2019-08-29] MEDS ORDERED: OXYTOCIN 20 UNITS/1000 ML NS 1,000 ML IV SCH (17:15)
[2019-08-29 21:54] VITALS: RESP 16
[2019-08-29] MEDS: SENNOSIDES-DOCUSATE SODIUM 1 EACH TAB PO SCH (22:02)
[2019-08-29] MEDS ORDERED: Rhogam IMMUNE GLOBULIN 1,500 UNIT/1 ML IM ONE (23:57)
[2019-08-30] MEDS: LACTATED RINGERS 1,000 ML IV SCH (04:42)
[2019-08-30 06:49] LABS: Basophils % (A) 0 %; Eosinophils # (A) 0.1 k/uL (0-0.7); Eosinophils % (A) 1 %; HCT 32.1 % (34.0-46.0); Lymphocytes # (A) 1.8 k/uL (1.0-4.8); Lymphocytes % (A) 18 %; MCH 33.1 pg (25.0-35.0); MCHC 34.9 g/dL (31.0-37.0); Mean Platelet Volume 9.3; Monocytes # (A) 0.4 k/uL (0-1.0); Monocytes % (A) 4 %; Neutrophils # (A) 7.5 k/uL (1.3-7.7); Neutrophils % (A) 76 %; Platelet Count 175 k/uL (150-450); RBC 3.38 m/uL (3.80-5.40); RDW 13.2 % (11.5-15.5); WBC 9.9 k/uL (3.8-10.6)
[2019-08-30 06:52] LABS: HGB 11.2 gm/dL (11.4-16.0)
--- NOTE | 2019-08-30 07:51 | P.HPOB ---
History of Present Illness H&P Date: 08/29/19 Chief Complaint: [place] 29-year-old presents at 39 weeks and 3 days in active labor. Her cervix was 9 cm dilated, 100% effaced, and 0 station. She is krishna every 2-4 minutes. heart tones 130 with moderate variability and reactive. Review of Systems All systems: negative Constitutional: Denies chills, Denies fever Eyes: denies blurred vision, denies pain Ears, nose, mouth and throat: Denies headache, Denies sore throat Cardiovascular: Denies chest pain, Denies shortness of breath Respiratory: Denies cough Gastrointestinal: Denies abdominal pain, Denies diarrhea, Denies nausea, Denies vomiting Genitourinary: Denies dysuria, Denies hematuria Musculoskeletal: Denies myalgias Integumentary: Denies pruritus, Denies rash Neurological: Denies numbness, Denies weakness Psychiatric: Denies anxiety, Denies depression Endocrine: Denies fatigue, Denies weight change Past Medical History Past Medical History: No Reported History Additional Past Medical History / Comment(s): Obstetric history: She's had 2 previous vaginal deliveries. This is her third . She has had care with [facility] since 8 week gestation. O neg, abs neg, Rub nonimmune, RPR NR, Hep B neg, HIV NR, toxo neg. she received program on 06/19/2019. Had a normal anatomy US. normal 1hr GTT History of Any Multi-Drug Resistant Organisms: MRSA Date of last positivie culture/infection: 07/24/2011 MDRO Source:: BUTTOCKS Past Surgical History: Appendectomy Past Anesthesia/Blood Transfusion Reactions: No Reported Reaction Past Psychological History: No Psychological Hx Reported Smoking Status: Never smoker Past Alcohol Use History: Rare Past Drug Use History: None Reported - Past Family History Mother Family Medical History: Hypertension Medications and Allergies Home Medications Medication Instructions Recorded Confirmed Type 114/Iron A-G/Folate 1 1 each PO DAILY 08/29/19 08/29/19 History [Prenate Elite Tablet] Allergies Allergy/AdvReac Type Severity Reaction Status Date / Time No Known Allergies Allergy Verified 08/29/19 16:06 Exam Osteopathic Statement: *. No significant issues noted on an osteopathic structural exam other than those noted in the History and Physical/Consult. Vital Signs Temp Pulse Resp BP Pulse Ox 08/30/19 04:00 98.2 F 80 16 110/80 08/30/19 00:00 98.5 F 78 16 100/64 100 08/29/19 20:00 99.0 F 90 16 107/70 100 08/29/19 18:52 98 F 92 15 120/68 08/29/19 18:22 85 15 103/69 98 08/29/19 17:52 86 15 109/70 98 08/29/19 17:37 68 15 114/72 98 08/29/19 17:22 74 15 117/72 98 08/29/19 17:07 81 15 111/66 98 08/29/19 16:52 97.8 F 84 15 116/68 98 08/29/19 16:08 97.5 F L 85 15 120/72 98 Intake and Output 08/29/19 08/30/19 08/30/19 22:59 06:59 14:59 Other: # Voids 1 2 Weight 66.678 kg Heart: Regular rate and rhythm Lungs: Clear to auscultation bilaterally Abdomen: Soft, nontender Extremities: Negative Homans sign Results Result Diagrams: 08/30/19 06:11 Abnormal Lab Results - Last 24 Hours (Table) 08/29/19 08/30/19 Range/Units 16:24 06:11 WBC 17.1 H (3.8-10.6) k/uL RBC 3.38 L (3.80-5.40) m/uL Hgb 11.2 L D (11.4-16.0) gm/dL Hct 32.1 L (34.0-46.0) % Neutrophils # 14.7 H (1.3-7.7) k/uL Assessment and Plan (1) Normal labor Current Visit: Yes Status: Acute Code(s): O80 - ENCOUNTER FOR FULL-TERM UNCOMPLICATED DELIVERY; Z37.9 - OUTCOME OF DELIVERY, UNSPECIFIED SNOMED Code(s): 58393665 Plan: 1. Admit to family place for expectant management 2. Anticipate normal vaginal delivery
--- NOTE | 2019-08-30 07:52 | P.PROBDLV ---
Vaginal Delivery Note - . Vaginal Delivery Note: 29-year-old presents at 39 weeks and 3 days in active labor. Her cervix was 9 cm dilated, 100% effaced, and 0 station. She is krishna every 2-4 minutes. heart tones 130 with moderate variability and reactive. Amniotomy was performed at 6:27 AM and clear fluid noted. She then pushed, and delivered a viable female over intact perineum at 1637. Head delivered OP, anterior shoulder delivered gentle downward guidance. A posterior shoulder and rest of body. Nose and mouth bulb suctioned, cord clamped and cut, placed mother's abdomen. Apgars 9, 9, weight 7 lbs. 2 oz. Placenta delivered spontaneously, intact with three-vessel cord at 1640. Vagina, cervix, and perineum were inspected. First-degree midline laceration was repaired with 3-0 Vicryl. Pitocin was added to the IV bag and fundal massage was done. Quantitative blood loss 695 mL. Mother and baby in stable condition.
--- NOTE | 2019-08-30 07:54 | P.DS ---
Providers Date of admission: 08/29/19 15:51 Expected date of discharge: 08/30/19 Attending physician: Loli Alves Primary care physician: Stated None - Discharge Diagnosis(es) (1) Normal labor Current Visit: Yes Status: Resolved (2) Normal vaginal delivery Current Visit: No Status: Acute Hospital Course: Patient presented in active labor. She underwent a normal vaginal delivery. Her course was uncomplicated. She'll be discharged home day #1 in stable condition to follow-up with me in 6 weeks. Plan - Discharge Summary New Discharge Prescriptions: New Ibuprofen [Motrin] 600 mg PO Q6HR PRN #30 tab PRN Reason: Mild Pain Or Fever >= 100.5 No Action 114/Iron A-G/Folate 1 [Prenate Elite Tablet] 1 each PO DAILY Discharge Medication List 114/Iron A-G/Folate 1 [Prenate Elite Tablet] 1 each PO DAILY 08/29/19 [History] Ibuprofen [Motrin] 600 mg PO Q6HR PRN #30 tab 08/30/19 [Rx] Follow up Appointment(s)/Referral(s): Loli Alves DO [Doctor of Osteopathic Medicine] - 6 Weeks Discharge Disposition: HOME SELF-CARE
[2019-08-30] MEDS: SENNOSIDES-DOCUSATE SODIUM 1 EACH TAB PO SCH (08:21)
[2019-08-30 15:59] VITALS: BP 106/64; PULSE 81; TEMP 98.1
== END 2019-08-30 17:45 | disposition home or self-care (01) | DRG 807 ==
LOC: FBPOP 15:46 → 4FBP 15:51
PROVIDERS: ADMIT Obstetrics & Gynecology; ATTEND Obstetrics & Gynecology
PROC: 10E0XZZ Delivery of Products of Conception, External Approach (ICD-10-PCS; principal; 2019-08-29)
PROC: 0HQ9XZZ Repair Perineum Skin, External Approach (ICD-10-PCS; principal; 2019-08-29)
DX: O70.0 First degree perineal laceration during delivery (principal); Z37.0 Single live birth; Z3A.39 39 weeks gestation of pregnancy; Z86.14 Personal history of Methicillin resistant Staphylococcus aureus infection; Z90.49 Acquired absence of other specified parts of digestive tract; Z82.49 Family history of ischemic heart disease and other diseases of the circulatory system
CPT/HCPCS: 59025; 85025; 85461; 86850; 86870; 86880; 86900; 86901; 86902; 90471; 90707; 99213

== ENCOUNTER 2019-11-29 06:58 | Day surgery (SDC) | payer OTHER ==
[2019-11-26 08:41] VITALS: BMI 18.6
[~2019-11-29 06:58] MED LIST: DEXAMETHASONE SOD PHOSPHATE 10 MG/ML 1 ML VIAL IV ONE; HYDROmorphone 0.5 MG/0.5 ML SYRINGE IVP PRN; LACTATED RINGERS 1,000 ML IV SCH; LIDOCAINE 1% (10MG/ML) FOR IV START INTRADERMA PRN; MIDAZOLAM 2 MG/2 ML VIAL IV PRN; ONDANSETRON 4 MG/2 ML VIAL IVP ONE; Pre Op ABX Message 1 EACH MISC MISCELLANE ONE
[2019-11-29] MEDS ORDERED: ONDANSETRON 4 MG/2 ML VIAL ONE (07:14)
[2019-11-29] MEDS ORDERED: LACTATED RINGERS 1,000 ML IV ONE (07:23)
[2019-11-29] MEDS ORDERED: SCOPOLAMINE 1.5MG/72HR PATCH TRANSDERM ONE (07:23)
--- NOTE | 2019-11-29 07:30 | P.HPOB ---
History of Present Illness H&P Date: 11/29/19 Chief Complaint: Induction of labor 29-year-old presents for a laparoscopic tubal ligation. Review of Systems All systems: negative Constitutional: Denies chills, Denies fever Eyes: denies blurred vision, denies pain Ears, nose, mouth and throat: Denies headache, Denies sore throat Cardiovascular: Denies chest pain, Denies shortness of breath Respiratory: Denies cough Gastrointestinal: Denies abdominal pain, Denies diarrhea, Denies nausea, Denies vomiting Genitourinary: Denies dysuria, Denies hematuria Musculoskeletal: Denies myalgias Integumentary: Denies pruritus, Denies rash Neurological: Denies numbness, Denies weakness Psychiatric: Denies anxiety, Denies depression Endocrine: Denies fatigue, Denies weight change Past Medical History Past Medical History: No Reported History Additional Past Medical History / Comment(s): Obstetric history: She's had 3 vaginal deliveries History of Any Multi-Drug Resistant Organisms: MRSA Date of last positivie culture/infection: 07/24/2011 MDRO Source:: BUTTOCKS Past Surgical History: Appendectomy Past Anesthesia/Blood Transfusion Reactions: Motion Sickness Past Psychological History: No Psychological Hx Reported Smoking Status: Never smoker Past Alcohol Use History: Occasional Past Drug Use History: None Reported - Past Family History Mother Family Medical History: Hypertension Brother(s) Family Medical History: Cancer Additional Family Medical History / Comment(s): Throat Cancer. Medications and Allergies Home Medications Medication Instructions Recorded Confirmed Type No Known Home Medications 11/26/19 11/26/19 History Allergies Allergy/AdvReac Type Severity Reaction Status Date / Time No Known Allergies Allergy Verified 11/26/19 08:42 Exam Osteopathic Statement: *. No significant issues noted on an osteopathic structural exam other than those noted in the History and Physical/Consult. Vital Signs Temp Pulse Resp BP Pulse Ox 11/29/19 07:12 97.8 F 68 18 108/71 100 Intake and Output 11/28/19 11/29/19 11/29/19 22:59 06:59 14:59 Other: Weight 56.2 kg Heart: Regular rate and rhythm Lungs: Clear to auscultation bilaterally Abdomen: Soft, nontender Extremities: Negative Homans sign Assessment and Plan (1) Family planning Current Visit: Yes Status: Acute Code(s): Z30.09 - ENCOUNTER FOR OTH GENERAL CNSL AND ADVICE ON CONTRACEPTION SNOMED Code(s): 168180070 Plan: 1. Laparoscopic tubal ligation risks and benefits alternatives discussed with patient expressed complete understanding.
[2019-11-29] MEDS ORDERED: KETOROLAC 30 MG/ML 1 ML VIAL ONE (07:52)
[2019-11-29] MEDS ORDERED: SUCCINYLCHOLINE CHLORIDE 100 MG/5 ML SYR IV ONE (07:52)
[2019-11-29] MEDS ORDERED: LIDOCAINE 1% INJ 10MG/ML (20 ML MDV) ONE (07:52)
[2019-11-29] MEDS ORDERED: PROPOFOL 10 MG/ML 20 ML VIAL IV ONE (07:52)
[2019-11-29] MEDS ORDERED: MIDAZOLAM 2 MG/2 ML VIAL ONE (07:52)
[2019-11-29] MEDS ORDERED: fentaNYL (PF) 50 MCG/ML 2 ML AMP ONE (07:52)
[2019-11-29] MEDS ORDERED: BUPIVACAINE (PF) 0.25% 30 ML VIAL SQ ONE ×2 (08:18)
--- NOTE | 2019-11-29 08:53 | P.OP ---
Date of Procedure: 11/29/19 Preoperative Diagnosis: 1. Family planning Postoperative Diagnosis: 1. Family planning Procedure(s) Performed: Laparoscopic tubal ligation Anesthesia: EVAN Surgeon: Loli Alves Estimated Blood Loss (ml): 5 IV fluids (ml): 500 Urine output (ml): 30 Pathology: none sent Condition: stable Disposition: floor Operative Findings: Normal uterus, tubes, ovaries. Uterus sounded 8 cm. Description of Procedure: Patient was taken to the operating room where general anesthesia was obtained without difficulty. She was prepped and draped in normal sterile fashion in the dorsal lithotomy position, legs placed in the Harpreet stirrups. Bladder drained of all urine. [place] speculum placed in the vagina and the anterior lip the cervix was grasped with single-tooth tenaculum. The uterus is sounded to 8 cm and the kroner manipulator was placed. Attention was then turned to the abdomen and gloves were changed. A 10 mm infraumbilical incision was made the scalpel and 10 mm optical trocar was placed under direct visualization. A 5 mm suprapubic Incision was made and a 5 mm optical trocar was placed under direct visualization. Survey of the pelvis revealed normal uterus tubes and ovaries. The left fallopian tube was grasped with a Kleppinger and fulgurated 2-3 cm on this side in the ampullar portion. The right fallopian tube was grasped with a Kleppinger and fulgurated 2-3 cm in the ampullar portion. All instruments were then removed from the abdomen and vagina. The 10 mm infraumbilical incision was closed with 4-0 Vicryl in a subcuticular fashion. The 5 mm incision was closed with 4-0 Vicryl in a subcuticular fashion. Patient tolerated procedure well, sponge and instrument counts correct 2 and she was taken to recovery room in stable condition.
[2019-11-29 08:54] VITALS: TEMP 96.8
[2019-11-29 09:40] VITALS: BP 119/78; RESP 18
[2019-11-29 09:56] VITALS: PULSE 74
== END 2019-11-29 10:23 | disposition home or self-care (01) ==
LOC: OR 06:58
PROVIDERS: ATTEND Obstetrics & Gynecology
DX: Z30.2 Encounter for sterilization (principal); Z86.14 Personal history of Methicillin resistant Staphylococcus aureus infection; Z98.890 Other specified postprocedural states
CPT/HCPCS: 81025; 58670; J2250; J1100; J2405; J2001; J3010; J1885; J0330; J2704

== ENCOUNTER → 2024-01-03 | Outpatient (CLI) | payer OTHER ==
--- NOTE | 2024-01-03 17:22 | US ---
LOWER EXTREMITY VENOUS INSUFFICIENCY CLINICAL INDICATION: Female, 33 years old with history of I87.20 LWR EXTREMITY VENOUS INSUFFICIENCY; edema SIDE PERFORMED: bilat 1) Color flow is present and patency is documented in the following vessels. No DVT or SVT is noted . Common Femoral Vein Deep Femoral Vein Femoral Vein Popliteal Vein Proximal Calf Veins Greater Saph Vein Upper Small Saph Vein 2) There is venous reflux noted at the following venous levels: right: EIV, GSV left: EIV, GSV, CFV, Deep FV IMPRESSION: 1. No ultrasound evidence for deep venous thrombosis. 2. Venous insufficiency as described above.
== END | disposition home or self-care (01) ==
LOC: RADUSWWP 16:30
PROVIDERS: ATTEND Family Medicine
DX: I87.2 Venous insufficiency (chronic) (peripheral) (principal)
CPT/HCPCS: 93970